=== PATIENT | female | born 1965 | race Caucasian/White ===

== ENCOUNTER 2017-08-29 09:46 | Emergency (ER) | payer OTHER ==
[~2017-08-29] VITALS: Ht 152.4 cm; Wt 90.0 kg
[2017-08-29 09:47] VITALS: BP 150/75; PULSE 101; RESP 20; TEMP 99.5; O2SAT 98
[2017-08-29] MEDS ORDERED: VORT1TAB3 PO (11:02)
[2017-08-29] MEDS ORDERED: TOPR50TA PO (11:02)
[2017-08-29] MEDS ORDERED: SULF1TAB23 PO (11:02)
[2017-08-29] MEDS ORDERED: DOXY1CAP74 PO (11:02)
[2017-08-29] MEDS ORDERED: SODIUM CHLOR 0.9% 1000 ML INJ 1,000 ML IV SCH (11:04)
--- NOTE | 2017-08-29 11:04 | PD ---
HPI Chief Complaint: Skin Problem Time Seen by Provider: 11:04 Travel History International Travel<30 days: No Contact w/Intl Traveler<30days: No Traveled to known affect area: No History of Present Illness HPI 52-year-old female presents to the emergency Department with complaint of development of a second abscess to her right thigh after being seen on Sunday and treated for an abscess to the same area. Intensity been since Sunday. The first abscess opened up and started draining on Sunday. She was seen at [facility] and was given an injection of Rocephin and prescribed Bactrim and doxycycline for home which she has been compliant with. Reports subjective fevers. Denies vomiting. Denies paresthesias, loss of sensation, decreased range of motion, decreased strength to the affected extremity. Rates pain 9/ 10. Describes it as a pressure. Worse with pressure to the area. Pain is decreased at rest. Has not taken any medication to alleviate her pain symptoms. Has done warm compresses to the area. Does not have an established primary care provider. History of hypertension, anxiety, and abscesses. No known allergies. No other modifying factors or associated signs and symptoms. PFSH Past Medical History ?: Not Social History Tobacco Use: No Allergies-Medications (Allergen,Severity, Reaction): Coded Allergies: No Known Allergies (Unverified , 08/29/17) Reported Meds & Prescriptions Reported Meds & Active Scripts Active Lortab (Hydrocodone-Acetaminophen) 5-325 Mg Tab 1 Tab PO Q4H PRN Reported Toprol XL (Metoprolol Succinate) 50 Mg Tab 50 Mg PO DAILY Doxycycline 40 Mg Cap 100 Mg PO BID Trintellix (Vortioxetine) 20 Mg Tab 20 Mg PO DAILY Sulfamethoxazole-Trimethoprim 800-160 Mg Tab 1 Tab PO BID Review of Systems Except as stated in HPI: all other systems reviewed are Neg Physical Exam Narrative GENERAL: Well-nourished, well-developed female patient, in no acute distress; low-grade fever 99.6; nontoxic-appearing SKIN: There is a large indurated area to the right anterior thigh; there is also an open abscess which measures about 1.5 cm in diameter. The large area of induration is nonfluctuant but there is no pointing or drainage. There is a zone of inflammation around it but no lymphangitis. Right lower extremity supple and non-tense with 2+ pedal pulses sensory intact. HEAD: Atraumatic. Normocephalic. EYES: Pupils equal and round. No scleral icterus. No injection or drainage. ENT: Mucosa pink and moist. Airway patent. NECK: Trachea midline. CARDIOVASCULAR: Regular rate. RESPIRATORY: No accessory muscle use. GASTROINTESTINAL: Obese. MUSCULOSKELETAL: No obvious deformities. No clubbing. No cyanosis. No edema. NEUROLOGICAL: Awake and alert. Oriented 3. No obvious cranial nerve deficits. Motor grossly within normal limits. Normal speech. PSYCHIATRIC: Appropriate mood and affect; insight and judgment normal. Data Data Last Documented VS Vital Signs Date Time Temp Pulse Resp B/P (MAP) Pulse Ox O2 Delivery O2 Flow Rate FiO2 08/29/17 15:23 98.9 97 20 139/78 (98) 100 08/29/17 09:47 Room Air Orders Orders Complete Blood Count With Diff (08/29/17 11:04) Prothrombin Time / Inr (Pt) (08/29/17 11:04) Act Partial Throm Time (Ptt) (08/29/17 11:04) Lactic Acid Sepsis Protocol (08/29/17 11:04) Blood Culture (08/29/17 11:04) Ecg Monitoring (08/29/17 11:04) Iv Access Insert/Monitor (08/29/17 11:04) Oximetry (08/29/17 11:04) Basic Metabolic Panel (Bmp) (08/29/17 11:04) Wound Culture And Gram Stain (08/29/17 11:04) Tetanus/Diphtheria Tox Adult (Tetanus/Di (08/29/17 11:15) Sodium Chlor 0.9% 1000 Ml Inj (Ns 1000 M (08/29/17 11:04) Us Leg Soft Tissue (08/29/17 ) Lidocaine 1% Inj (50 Ml) (Xylocaine 1% I (08/29/17 13:00) Ketorolac Inj (Toradol Inj) (08/29/17 13:15) Asp:No Reaction To [place]/Vanc (Asp Crit (08/29/17 13:15) Asp: Does Not Meet Inpt Admit (Asp Crit: (08/29/17 13:15) Asp: Iv Antibiotics Admit Only (Asp Crit (08/29/17 13:15) Asp: Location Of [facility] Admin (Asp Crit: (08/29/17 13:15) [facility] [place] [facility] Information ([facility] (08/29/17 13:15) Dal[place]avancin Inj (Dalvance Inj) (08/29/17 13:11) Potassium Chloride (Kcl) (08/29/17 13:15) Wound Culture And Gram Stain (08/29/17 13:38) Ed Discharge Order (08/29/17 16:02) Labs Laboratory Tests Test 08/29/17 11:15 08/29/17 15:55 White Blood Count 10.6 TH/MM3 Red Blood Count 4.94 MIL/MM3 Hemoglobin 14.1 GM/DL Hematocrit 43.0 % Mean Corpuscular Volume 87.1 FL Mean Corpuscular Hemoglobin 28.5 PG Mean Corpuscular Hemoglobin Concent 32.7 % Red Cell Distribution Width 15.4 % Platelet Count 252 TH/MM3 Mean Platelet Volume 10.4 FL Neutrophils (%) (Auto) 73.8 % Lymphocytes (%) (Auto) 13.9 % Monocytes (%) (Auto) 11.0 % Eosinophils (%) (Auto) 0.9 % Basophils (%) (Auto) 0.4 % Neutrophils # (Auto) 7.8 TH/MM3 Lymphocytes # (Auto) 1.5 TH/MM3 Monocytes # (Auto) 1.2 TH/MM3 Eosinophils # (Auto) 0.1 TH/MM3 Basophils # (Auto) 0.0 TH/MM3 CBC Comment DIFF FINAL Differential Comment Prothrombin Time 10.7 SEC Prothromb Time International Ratio 1.0 RATIO Activated Partial Thromboplast Time 26.8 SEC Blood Urea Nitrogen 11 MG/DL Creatinine 0.85 MG/DL Random Glucose 88 MG/DL Calcium Level 9.2 MG/DL Sodium Level 135 MEQ/L Potassium Level 3.2 MEQ/L Chloride Level 101 MEQ/L Carbon Dioxide Level 23.2 MEQ/L Anion Gap 11 MEQ/L Estimat Glomerular Filtration Rate 70 ML/MIN Lactic Acid Level 2.6 mmol/L MDM Medical Decision Making Medical Screen Exam Complete: Yes Emergency Medical Condition: Yes Medical Record Reviewed: Yes Differential Diagnosis Abscess, cellulitis, MRSA Narrative Course 52-year-old female with an abscess to her right anterior thigh. Dr. Barrett evaluated the patient and agreed with my plan of care. IV site obtained. CBC, BMP, coags, lactic acid, blood cultures, normal saline bolus ordered. Right leg soft tissue ultrasound ordered. I offered the patient pain medication and she declined at this time. 1249: Right leg ultrasound concluded: Lower Extremity Ultrasound 08/29/17 0000 Signed Impressions: Service Date/Time: Tuesday, August 29, 2017 11:24 - CONCLUSION: 1. Ill-defined hypoechoic fluid collections which could represent an abscess. 2. Diffuse edema and soft tissue swelling with increased vascularity. 3. Multiple small lymph nodes. Bora Austin MD CBC unremarkable. Potassium 3.2. Replaced with 40MeQ oral potassium chloride. Lactic acid 2.6. 1340: Dr. Barrett agreed the abscess can be I&D. See my procedure note for I& D. A second blood culture was obtained from the purulent Drainage from I&D. The patient was given the option for admission and declined. Patient administered Valvance in the ER. Patient was instructed to return to the emergency department in 48 hours for abscess recheck and packing removal. Discussed reasons to return earlier. Patient verbalized understanding and agreement with treatment plan. Lortab prescribed for home. Instructed patient to follow up with primary care provider. Patient verbalizes understanding and agreement with treatment plan. Patient is medically cleared and stable for discharge. Discussed reasons to return to the emergency department. Patient agrees with treatment plan. The patients vital signs are stable and the patient is stable for outpatient follow-up and treatment. Patient discharged home, stable and in no acute distress. Procedures Procedure Narrative INCISION AND DRAINAGE OF ABSCESS: The area was prepped and was sterilely draped. A subcutaneous wheal of 1 % Xylocaine with a total number 3 mL was used to anesthetize the area properly. A number 11 scalpel was used to make a 1 -cm incision across the area of the abscess. The abscess was drained, complex loculations were broken down, and irrigated with normal saline. Cultures were obtained. Quarter inch iodoform packing was placed in the wound. Sterile dressing applied. Patient advised to have packing removed in two days. Diagnosis Primary Impression: Abscess of right thigh Referrals: [facility] Primary Care Physician Patient Instructions: Abscess (ED), Abscess Follow-up (ED), Abscess Incision and Drainage (DC), General Instructions Departure Forms: Tests/Procedures, Work Release Enter return to work date: Sep 01, 2017 Additional Instructions: Complete full course of antibiotics Warm compresses to the affected area Keep area clean and dry Ibuprofen or Tylenol as directed and as needed for pain and inflammation Return to the emergency department in 48 hours for abscess packing removal and abscess recheck Follow-up with primary care provider Return to emergency department immediately with worsening of symptoms Med/Other Pt SpecificInfo: Prescription(s) given Scripts Hydrocodone-Acetaminophen (Lortab) 5-325 Mg Tab 1 TAB PO Q4H Y for PAIN, #12 TAB 0 Refills Prov: Nancy Alejandra 08/29/17 Disposition: 01 DISCHARGE HOME Condition: Stable Nancy Alejandra Aug 29, 2017 11:04
[2017-08-29] MEDS ORDERED: TETANUS/DIPHTHERIA TOXOID ADULT 0.5 ML VIAL IM ONE (11:15)
[2017-08-29 11:18] VITALS: O2SAT 99
[2017-08-29 12:00] LABS: AUTOMATED NEUTROPHIL # 7.8 TH/MM3 (1.8-7.7); BASOPHIL % 0.4 % (0.0-2.0); EOSINOPHIL # 0.1 TH/MM3 (0-0.4); EOSINOPHIL % 0.9 % (0.0-4.0); HEMO FLAGS DIFF FINAL; LYMPH % 13.9 % (9.0-44.0); LYMPHOCYTE # 1.5 TH/MM3 (1.0-4.8); MEAN CELL VOLUME 87.1 FL (80.0-100.0); MEAN CORPUSCULAR HEMOGLOBIN 28.5 PG (27.0-34.0); MEAN CORPUSCULAR HGB CONC 32.7 % (32.0-36.0); NEUT % 73.8 % (16.0-70.0); PLATELET COUNT 252 TH/MM3 (150-450); RED BLOOD COUNT 4.94 MIL/MM3 (4.00-5.30); RED CELL DISTRIBUTION WIDTH 15.4 % (11.6-17.2); WHITE BLOOD COUNT 10.6 TH/MM3 (4.0-11.0)
[2017-08-29 12:15] LABS: APTT (PATIENT) 26.8 SEC (24.3-30.1); PROTHROMBIN TIME - PATIENT 10.7 SEC (9.8-11.6)
[2017-08-29 12:16] LABS: BICARBONATE 23.2 MEQ/L (21.0-32.0)
[2017-08-29 12:17] LABS: POTASSIUM 3.2 MEQ/L (3.5-5.1)
--- NOTE | 2017-08-29 12:20 | RADRPT ---
EXAM DATE/TIME: 08/29/2017 11:24 [facility] COMPARISON: No previous studies available for comparison. INDICATIONS : Pain and swelling. Please evaluate for possible abscess. MEDICAL HISTORY : Hypertension. Right leg abscess. SURGICAL HISTORY : Pilonoidal cyst. Sinus. ENCOUNTER: Initial ACUITY: 3 days PAIN SCORE: 5/10 LOCATION: Left leg. AREA EVALUATED: Right upper leg/thigh. FINDINGS: A targeted ultrasound examination was performed along the right upper leg and thigh in the area of pa in and swelling. This demonstrated edema and soft tissue swelling with ill-defined hypoechoic fluid c ollections measuring up to approximately 1.4 x 3.1 cm in greatest diameter. There was surrounding col or flow. There were multiple small lymph nodes in the upper thigh. CONCLUSION: 1. Ill-defined hypoechoic fluid collections which could represent an abscess. 2. Diffuse edema and soft tissue swelling with increased vascularity. 3. Multiple small lymph nodes. Bora Austin MD on August 29, 2017 at 12:17 Board Certified Radiologist. This report was verified electronically.
[2017-08-29] MEDS ORDERED: LIDOCAINE HCL 1% 50 ML VIAL INFIL ONE (13:00)
[2017-08-29] MEDS ORDERED: DALBAVANCIN INJ 1,500 MG in DEXTROSE 5% IN WATE 500 ML INJ 500 ML IV STA ×2 (13:11)
[2017-08-29] MEDS ORDERED: POTASSIUM CHLORIDE 20 MEQ CONTROLLED RELEASE TAB PO ONE (13:15)
[2017-08-29] MEDS ORDERED: ASP: No known hypersensitivity to Vanco, Telavancin, Dalbavancin OTHER ONE (13:15)
[2017-08-29] MEDS ORDERED: ASP: Only reason for admit - IV antibiotics OTHER ONE (13:15)
[2017-08-29] MEDS ORDERED: MISCELLANEOUS PHARMACY INFORMATION XX ONE (13:15)
[2017-08-29] MEDS ORDERED: ASP: Does not meet inpatient admission criteria OTHER ONE (13:15)
[2017-08-29] MEDS ORDERED: KETOROLAC TROMETHAMINE 60 MG/2 ML (IM) VIAL IM ONE (13:15)
[2017-08-29] MEDS ORDERED: ASP: Location of Dalbavancin administration OTHER ONE (13:15)
--- NOTE | 2017-08-29 13:41 | PD ---
Data Data Last Documented VS Vital Signs Date Time Temp Pulse Resp B/P (MAP) Pulse Ox O2 Delivery O2 Flow Rate FiO2 08/29/17 11:18 99 08/29/17 09:47 99.5 101 20 Room Air Orders Orders Complete Blood Count With Diff (08/29/17 11:04) Prothrombin Time / Inr (Pt) (08/29/17 11:04) Act Partial Throm Time (Ptt) (08/29/17 11:04) Lactic Acid Sepsis Protocol (08/29/17 11:04) Blood Culture (08/29/17 11:04) Ecg Monitoring (08/29/17 11:04) Iv Access Insert/Monitor (08/29/17 11:04) Oximetry (08/29/17 11:04) Basic Metabolic Panel (Bmp) (08/29/17 11:04) Wound Culture And Gram Stain (08/29/17 11:04) Tetanus/Diphtheria Tox Adult (Tetanus/Di (08/29/17 11:15) Sodium Chlor 0.9% 1000 Ml Inj (Ns 1000 M (08/29/17 11:04) Us Leg Soft Tissue (08/29/17 ) Lidocaine 1% Inj (50 Ml) (Xylocaine 1% I (08/29/17 13:00) Ketorolac Inj (Toradol Inj) (08/29/17 13:15) Asp:No Reaction To [place]/Vanc (Asp Crit (08/29/17 13:15) Asp: Does Not Meet Inpt Admit (Asp Crit: (08/29/17 13:15) Asp: Iv Antibiotics Admit Only (Asp Crit (08/29/17 13:15) Asp: Location Of [facility] Admin (Asp Crit: (08/29/17 13:15) [facility] [place] (08/29/17 13:15) [place]ancin Inj (Dalvance Inj) (08/29/17 13:11) Potassium Chloride (Kcl) (08/29/17 13:15) Labs Laboratory Tests Test 08/29/17 11:15 White Blood Count 10.6 TH/MM3 Red Blood Count 4.94 MIL/MM3 Hemoglobin 14.1 GM/DL Hematocrit 43.0 % Mean Corpuscular Volume 87.1 FL Mean Corpuscular Hemoglobin 28.5 PG Mean Corpuscular Hemoglobin Concent 32.7 % Red Cell Distribution Width 15.4 % Platelet Count 252 TH/MM3 Mean Platelet Volume 10.4 FL Neutrophils (%) (Auto) 73.8 % Lymphocytes (%) (Auto) 13.9 % Monocytes (%) (Auto) 11.0 % Eosinophils (%) (Auto) 0.9 % Basophils (%) (Auto) 0.4 % Neutrophils # (Auto) 7.8 TH/MM3 Lymphocytes # (Auto) 1.5 TH/MM3 Monocytes # (Auto) 1.2 TH/MM3 Eosinophils # (Auto) 0.1 TH/MM3 Basophils # (Auto) 0.0 TH/MM3 CBC Comment DIFF FINAL Differential Comment Prothrombin Time 10.7 SEC Prothromb Time International Ratio 1.0 RATIO Activated Partial Thromboplast Time 26.8 SEC Blood Urea Nitrogen 11 MG/DL Creatinine 0.85 MG/DL Random Glucose 88 MG/DL Calcium Level 9.2 MG/DL Sodium Level 135 MEQ/L Potassium Level 3.2 MEQ/L Chloride Level 101 MEQ/L Carbon Dioxide Level 23.2 MEQ/L Anion Gap 11 MEQ/L Estimat Glomerular Filtration Rate 70 ML/MIN Lactic Acid Level 2.6 mmol/L MDM Supervised Visit with JIMI: Yes Narrative Course The history, exam, and medical decision-making in the associated midlevel provider note were completed with my assistance. I reviewed and agree with the findings presented. I attest that I had a [id number] encounter with the patient on the same day, and personally performed and documented my assessment and findings in the medical record. *My assessment and Findings: This is a 52-year-old female who presents to the emergency department with an area of erythema and warmth on her right anterior thigh that ends proximal to the gynecologic structures and does not include the vulva or the perineum.. Ultrasound confirms likely abscess. An incision and drainage was performed and a copious amount of purulent drainage was expressed. Patient was slightly tachycardic but has no leukocytosis. We offered the patient admission versus discharge. She'll prefer to go home which I think is reasonable, and she will return to the emergency department for recheck in 2 days. She was given Dalvance. If she worsens in the interim she seems reliable and will return to the emergency department. Keyonna Barrett MD Aug 29, 2017 13:41
[2017-08-29] MEDS ORDERED: HYDR-3533 PO (13:44)
[2017-08-29 13:50] LABS: LACTIC ACID GHOST NOT REPORTABLE
[2017-08-29 15:23] VITALS: BP 139/78; PULSE 97; RESP 20; TEMP 98.9; O2SAT 100
== END 2017-08-29 16:23 | disposition home or self-care (01) ==
LOC: NEPD 09:46
DX: L02.415 Cutaneous abscess of right lower limb (principal); B95.62 Methicillin resistant Staphylococcus aureus infection as the cause of diseases classified elsewhere; I10 Essential (primary) hypertension; F41.9 Anxiety disorder, unspecified
CPT/HCPCS: 10061; 76882; 80048; 83605; 85025; 85610; 85730; 86403; 87040; 87070; 87186; 90471; 90714; 96361; 96365; 96372; 99285; J0875; J1885; J7030; J7060; 87205

== ENCOUNTER 2017-08-31 14:27 | Emergency (ER) | payer OTHER ==
[~2017-08-31] VITALS: Ht 152.4 cm; Wt 90.5 kg
[~2017-08-31 14:27] MED LIST: DOXY1CAP74 PO; HYDR-3533 PO; SULF1TAB23 PO; TOPR50TA PO; VORT1TAB3 PO
[2017-08-31 14:28] VITALS: BP 161/82; PULSE 83; RESP 15; TEMP 97.7; O2SAT 97
--- NOTE | 2017-08-31 14:51 | PD ---
HPI Chief Complaint: Wound/Suture/Staple Re-Check Time Seen by Provider: 14:50 Travel History International Travel<30 days: No Contact w/Intl Traveler<30days: No Traveled to known affect area: No History of Present Illness HPI 52-year-old female presents to the emergency department requesting abscess packing removal. I saw the patient 2 days ago on August 29 and incised and drained an abscess to her right upper inner thigh. She was administered Dalvance in the ER. She reports improvement in the area. Says it still painful especially when her thighs rub together when she walks. Denies fever, vomiting. Reports continued drainage from the abscess. Rates pain 05/07. Describes it as a throbbing sensation. Has been changing dressing routinely. Has no other medical complaints. No known allergies. No other modifying factors or associated signs and symptoms. PFSH Past Medical History Hypertension: Yes Social History Alcohol Use: No Tobacco Use: No Substance Use: No Allergies-Medications (Allergen,Severity, Reaction): Coded Allergies: No Known Allergies (Unverified , 08/31/17) Reported Meds & Prescriptions Reported Meds & Active Scripts Active Lortab (Hydrocodone-Acetaminophen) 5-325 Mg Tab 1 Tab PO Q4H PRN Reported Toprol XL (Metoprolol Succinate) 50 Mg Tab 50 Mg PO DAILY Doxycycline 40 Mg Cap 100 Mg PO BID Trintellix (Vortioxetine) 20 Mg Tab 20 Mg PO DAILY Sulfamethoxazole-Trimethoprim 800-160 Mg Tab 1 Tab PO BID Review of Systems Except as stated in HPI: all other systems reviewed are Neg Physical Exam Narrative GENERAL: Well-nourished, well-developed female patient, in no acute distress; afebrile, nontoxic-appearing SKIN: There is an indurated area to the right upper inner thigh post incision and drainage with iodoform packing intact. There is a zone of inflammation around it but no lymphangitis; the zone of inflammation is significantly smaller than the marked area from a surgical marker. HEAD: Atraumatic. Normocephalic. EYES: Pupils equal and round. No scleral icterus. No injection or drainage. ENT: Mucosa pink and moist. Airway patent. NECK: Trachea midline. CARDIOVASCULAR: Regular rate. RESPIRATORY: No accessory muscle use. GASTROINTESTINAL: Obese. MUSCULOSKELETAL: No obvious deformities. No clubbing. No cyanosis. No edema. NEUROLOGICAL: Awake and alert. Oriented 3. No obvious cranial nerve deficits. Motor grossly within normal limits. Normal speech. PSYCHIATRIC: Appropriate mood and affect; insight and judgment normal. Data Data Last Documented VS Vital Signs Date Time Temp Pulse Resp B/P (MAP) Pulse Ox O2 Delivery O2 Flow Rate FiO2 08/31/17 14:28 97.7 83 15 161/82 (108) 97 Orders Orders Ed Discharge Order (08/31/17 14:51) MDM Medical Decision Making Medical Screen Exam Complete: Yes Emergency Medical Condition: Yes Medical Record Reviewed: Yes Differential Diagnosis Encounter for abscess packing removal, abscess recheck, medical clearance Narrative Course 52-year-old female returns for abscess packing removal to her right upper inner thigh. I saw this patient and incised and drained the abscess on August 29. She was administered Dalvance in the ER. There is significant improvement to the abscess. Patient is afebrile and nontoxic-appearing. She denies fever, vomiting. Packing removed and patient tolerated well. I reviewed the microbiology report and the wound culture grew out MRSA. Wound culture findings discussed with the patient. Instructed patient to follow up with primary care provider. Patient verbalizes understanding and agreement with treatment plan. Patient is medically cleared and stable for discharge. Discussed reasons to return to the emergency department. Patient agrees with treatment plan. The patients vital signs are stable and the patient is stable for outpatient follow-up and treatment. Patient discharged home, stable and in no acute distress. Diagnosis Primary Impression: Encounter for abscess packing removal Referrals: Primary Care Physician Patient Instructions: Abscess (ED), Abscess Follow-up (ED), General Instructions, MRSA (Methicillin-Resistant Staphylococcus Aureus) (ED) Additional Instructions: Warm compresses to the affected area Keep area clean and dry Ibuprofen or Tylenol as directed and as needed for pain and inflammation Follow-up with primary care provider Return to emergency department immediately with worsening of symptoms Med/Other Pt SpecificInfo: No Meds Exist/No RX given Disposition: 01 DISCHARGE HOME Condition: Stable Nancy Alejandra Aug 31, 2017 14:51
== END 2017-08-31 15:00 | disposition home or self-care (01) ==
LOC: NEPK 14:27
DX: Z51.89 Encounter for other specified aftercare (principal); I10 Essential (primary) hypertension
CPT/HCPCS: 99281